=== PATIENT | male | born 1955 | race Caucasian/White ===

== ENCOUNTER 2016-06-08 05:48 | Emergency (ER) | payer MEDICARE, OTHER ==
[2016-06-08 06:10] VITALS: BP 135/106
[2016-06-08] MEDS ORDERED: Proparacaine 0.5% Ophth Soln 15 ML Bottle ONE (06:14)
[2016-06-08] MEDS ORDERED: Proparacaine 0.5% Ophth Soln 15 ML Bottle EYELF ONE (06:14)
--- NOTE | 2016-06-08 06:35 | EDM.PDOC ---
ED HPI EYE COMPLAINT - General Chief Complaint: ENT Problem Stated Complaint: SOMETHING IN LEFT EYE Time Seen by Provider: 06/08/16 06:16 Source: Reports: Patient, RN notes reviewed History Limitations: Reports: No limitations - History of Present Illness INITIAL COMMENTS - FREE TEXT/NARRATIVE: 61-year-old gentleman presents emergency department today with complaint of foreign body in his left eye he was doing some sanding may have gotten some particles in there he is experiencing severe severe pain - Related Data Allergies/ADRs: Allergies No Known Allergies Allergy (Verified 06/08/16 06:00) Home Meds: Ambulatory Orders Medication Instructions Recorded Confirmed Cyclobenzaprine HCl 10 mg PO DAILY 04/04/14 06/08/16 [Cyclobenzaprine HCl] Hydrocodone/Acetaminophen 1 - 2 tab PO BID 04/04/14 06/08/16 [Hydrocodon-Acetaminophen 5-325] Ibuprofen [Advil] 400 mg PO BID PRN 04/04/14 06/08/16 Omeprazole [Omeprazole] 40 mg PO DAILY 04/04/14 06/08/16 hydrOXYzine Pamoate [Hydroxyzine 25 mg PO TID 04/04/14 06/08/16 Pamoate] Acetaminophen [Tylenol] 2 tab PO Q4H PRN 12/02/15 06/08/16 Gabapentin [Neurontin] 200 mg PO BEDTIME 06/08/16 06/08/16 Ranitidine [Zantac] 150 mg PO BID PRN 06/08/16 06/08/16 Tamsulosin [Tamsulosin 24 Hr] 0.4 mg PO DAILY 06/08/16 06/08/16 Past Medical History HEENT History: Reports: Other (see below) Other HEENT History: impaired swallow Gastrointestinal History: Reports: GERD Genitourinary History: Reports: BPH, Chronic renal insuffiency Musculoskeletal History: Reports: Arthritis, Back pain, chronic, Other (see below) Other Musculoskeletal History: shoulder bursitis Neurological History: Reports: Concussion Psychiatric History: Reports: Depression - Past Surgical History HEENT Surgical History: Reports: Tonsillectomy Male Surgical History: Reports: Other (see below) Other Male Surgeries/Procedures: prostate "micro-wave and laser" Neurological Surgical History: Reports: C-Spine, Laminectomy, Lumbar spine, Sacral Spine, Spinal fusion Musculoskeletal Surgical History: Reports: Shoulder surgery Social & Family History - Family History Family Medical History: Noncontributory - Tobacco Use Smoking Status *Q: Current Every Day Smoker Years of Tobacco use: 45 Packs/Tins Daily: 0.5 Second Hand Smoke Exposure: No - Caffeine Use Caffeine Use: Reports: Coffee, Soda - Alcohol Use Days Per Week of Alcohol Use: 0 - Recreational Drug Use Recreational Drug Use: No ED ROS GENERAL - Review of Systems Review Of Systems: See Below Constitutional: Reports: no symptoms HEENT: Reports: Eye pain. Denies: Eye discharge ED EXAM GENERAL W FULL EYE - Physical Exam Exam: See Below Exam Limited By: No limitations General Appearance: alert, mild distress Eye Exam: right eye: normal inspection, left eye: corneal abrasion, foreign body , bilateral eye: PERRL Visual acuity (R) 20/: 40 Visual acuity (L) 20/: 25 With Correction: No Eyelids: bilateral: normal appearance Conjunctiva & Sclera: right: normal appearance, left: foreign body, injected Cornea Exam: left: corneal ulcer, foreign body Extraocular Movements: bilateral: intact Pupils: normal accommodation Pupillary Size: bilateral: 4 mm Pupillary Reaction: bilateral: brisk Anterior Chamber: bilateral: normal appearance Respiratory/Chest: no respiratory distress ED EYE w/ Add Procedure - Eye Procedure Alcaine Drops Administered: Yes Eye FB Removal: removal w/ needle Cyclogel 2 Drops Administered: left eye Antibiotic Oinment/Drps Admin: left eye Course - Vital Signs Last Recorded V/S: Last Vital Signs Temp 96.6 F 06/08/16 06:08 Pulse 77 06/08/16 06:08 Resp 19 06/08/16 06:08 BP 135/106 H 06/08/16 06:08 Pulse Ox 96 06/08/16 06:08 - Orders/Labs/Meds Meds: Medications Discontinued Medications Generic Name Dose Route Start Last Admin Trade Name Freq PRN Reason Stop Dose Admin Proparacaine HCl 1 ml 06/08/16 06:14 06/08/16 06:18 Proparacaine 0.5% Ophth Soln EYELF 06/08/16 06:15 5 drop ONETIME ONE Administration Proparacaine HCl Confirm 06/08/16 06:14 06/08/16 06:19 Proparacaine 0.5% Ophth Soln Administered 06/08/16 06:15 Not Given Dose 15 ml .ROUTE .STK-MED ONE Departure - Departure Time of Disposition: 06:36 Disposition: Home, Self-Care 01 Condition: good Clinical Impression: Foreign body of left eye Qualifiers: Encounter type: initial encounter Qualified Code(s): T15.92XA - Foreign body on external eye, part unspecified, left eye, initial encounter Forms: ED Department Discharge Additional Instructions: Take full course of antibiotics for the next 5 days, please followup with your eye care provider on Thursday for reevaluation - Assessment/Plan Plan: Assessment Acuity = acute Site and laterality = foreign body left eye Etiology = secondary to dust from sanding Manifestations = none Location of injury = home Lab values = none Plan 2 objects were removed from the left eye via needle he had significant relief following the procedure corneal exam reveals 2 small ulcers tetanus was 2 years ago placed on gentamicin ophthalmic follow up with eye care provider on Thursday for reevaluation Patient was in agreement with the plan all questions were answered, they were instructed to return to the emergency department or call for worsening symptoms. This note was dictated using [employer] voice recognition software please call with any questions.
== END 2016-06-08 06:46 | disposition home or self-care (01) ==
LOC: JP.ED 05:48
DX: T15.92XA Foreign body on external eye, part unspecified, left eye, initial encounter (principal); K21.9 Gastro-esophageal reflux disease without esophagitis; F32.9 Major depressive disorder, single episode, unspecified; F17.210 Nicotine dependence, cigarettes, uncomplicated; Z98.1 Arthrodesis status; Z98.890 Other specified postprocedural states; Z79.899 Other long term (current) drug therapy
CPT/HCPCS: 65220; 99283; A9270

== ENCOUNTER 2017-03-13 12:50 | Emergency (ER) | payer MEDICARE, OTHER ==
[2017-03-13 14:28] VITALS: BP 124/92
[2017-03-13] MEDS ORDERED: Ketorolac 60 MG/2 ML SDV IM ONE (14:58)
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
[2017-03-13] MEDS ORDERED: Acetaminophen/oxyCODONE 325-5 MG Tab PO ONE (14:59)
--- NOTE | 2017-03-17 09:03 | CR ---
Prior rotator cuff repair. Superior subluxation of the humeral head this can indicate rotator cuff ar thropathy. Probable resection of the distal clavicle. No dislocation.
== END 2017-03-13 18:55 | disposition home or self-care (01) ==
LOC: JP.ED 12:50
DX: S06.0X9A Concussion with loss of consciousness of unspecified duration, initial encounter (principal); S12.100A Unspecified displaced fracture of second cervical vertebra, initial encounter for closed fracture; S40.011A Contusion of right shoulder, initial encounter; F17.210 Nicotine dependence, cigarettes, uncomplicated; Z79.899 Other long term (current) drug therapy; W01.198A Fall on same level from slipping, tripping and stumbling with subsequent striking against other object, initial encounter
CPT/HCPCS: 70450; 72125; 73030; 81001; 96372; 99284; A9270; J1885

== ENCOUNTER 2017-09-30 00:45 | Emergency (ER) | payer MEDICARE, OTHER ==
[2017-09-30 01:10] VITALS: BP 126/92
--- NOTE | 2017-09-30 02:03 | EDM.PDOC ---
ED HPI GENERAL MEDICAL PROBLEM - General Chief Complaint: Lower Extremity Injury/Pain Stated Complaint: FEET PAIN Time Seen by Provider: 09/30/17 01:38 Source of Information: Reports: Patient, Old Records, RN Notes Reviewed History Limitations: Reports: No Limitations - History of Present Illness INITIAL COMMENTS - FREE TEXT/NARRATIVE: Drove himself here Chief complaint Bilateral foot pain History of present illness 62-year-old male with chronic neck back and leg pain Uncertain cause. The legs seem to bother him for at least 2 months. Has been diagnosed with peripheral neuropathy before. Has had many investigations for his pain discomfort. No recent injury no recent illness legs, feet, and back Pain Score (Numeric/FACES): 7 - Related Data Allergies Allergy/AdvReac Type Severity Reaction Status Date / Time No Known Allergies Allergy Verified 06/08/16 06:00 Home Meds: Home Meds Omeprazole 40 mg PO BID 04/04/14 [History] Acetaminophen [Acetaminophen Extra Strength] 100 mg PO BEDTIME 09/30/17 [History ] LORazepam 1 - 2 mg PO BID PRN #10 tablet 09/30/17 [Rx] Ranitidine [Zantac] 150 mg PO BID PRN 09/30/17 [History] Past Medical History HEENT History: Reports: Impaired Vision, Other (See Below) Other HEENT History: impaired swallow. tinnitus Gastrointestinal History: Reports: GERD, Hiatal Hernia Genitourinary History: Reports: BPH, Chronic Renal Insuffiency, Prostate Disorder Musculoskeletal History: Reports: Arthritis, Back Pain, Chronic, Other (See Below) Other Musculoskeletal History: shoulder bursitis Neurological History: Reports: Concussion Psychiatric History: Reports: Depression Oncologic (Cancer) History: Reports: Prostate Dermatologic History: Reports: Urticaria, Other (See Below) Other Dermatologic History: c4-t1. l4-s1 - Past Surgical History HEENT Surgical History: Reports: LASIK Male Surgical History: Reports: Prostatectomy Neurological Surgical History: Reports: C-Spine, Lumbar Spine, Sacral Spine, Spinal Fusion Musculoskeletal Surgical History: Reports: Shoulder Surgery Social & Family History - Family History Family Medical History: Noncontributory - Tobacco Use Smoking Status *Q: Current Every Day Smoker Years of Tobacco use: 45 Packs/Tins Daily: 0.7 - Caffeine Use Caffeine Use: Reports: Coffee, Tea - Recreational Drug Use Recreational Drug Use: No Review of Systems - Review of Systems Review Of Systems: See Below Constitutional: Reports: Other Eyes: Reports: No Symptoms (generalized malaise and weakness) Ears: Reports: No Symptoms Nose: Reports: No Symptoms Mouth/Throat: Reports: No Symptoms Respiratory: Reports: No Symptoms Cardiovascular: Reports: No Symptoms GI/Abdominal: Reports: No Symptoms Musculoskeletal: Reports: Foot Pain (bilateral) Skin: Reports: No Symptoms Neurological: Reports: Paresthesia, Syncope. Denies: Confusion, Dizziness, Headache ED EXAM, GENERAL - Physical Exam Exam: See Below Exam Limited By: No Limitations General Appearance: Alert, No Apparent Distress, Anxious, Other (normal vital signs) Eye Exam: Bilateral Eye: Normal Inspection Ears: Normal External Exam, Hearing Grossly Normal Nose: Normal Inspection, Normal Mucosa Throat/Mouth: Normal Inspection, Normal Oropharynx Head: Atraumatic, Normocephalic Neck: Normal Inspection, Supple, Non-Tender. No: Lymphadenopathy (R), Lymphadenopathy (L) Respiratory/Chest: No Respiratory Distress, Lungs Clear, No Accessory Muscle Use Cardiovascular: Normal Peripheral Pulses, Regular Rate, Rhythm GI/Abdominal: Normal Bowel Sounds, Non-Tender Back Exam: Normal Inspection Extremities: Normal Inspection, Normal Range of Motion, Normal Capillary Refill Neurological: Alert, Oriented, No Motor/Sensory Deficits Psychiatric: Anxious Skin Exam: Warm, Dry, Intact, Normal Color, No Rash Lymphatic: No Adenopathy Course - Vital Signs Last Recorded V/S: Last Vital Signs Temp 36.3 C 09/30/17 01:08 Pulse 84 09/30/17 01:08 Resp 15 09/30/17 01:08 BP 126/92 H 09/30/17 01:08 Pulse Ox 98 09/30/17 01:08 - Re-Assessments/Exams Free Text/Narrative Re-Assessment/Exam: 09/30/17 02:00 62-year-old male with ongoing bilateral foot pain for at least 2 months. Ongoing body pain first many years. Reports having seen many physicians. No acute infection inflammation or emergent condition is identified here tonight Consequently investigations not indicated He does have difficulty sleeping and is the primary reason he is here Prescribed lorazepam Follow-up primary care Departure - Departure Time of Disposition: 02:01 Disposition: Home, Self-Care 01 Condition: Undetermined Clinical Impression: Peripheral neuropathy Qualifiers: Peripheral neuropathy type: idiopathic neuropathy, unspecified Qualified Code(s ): G60.9 - Hereditary and idiopathic neuropathy, unspecified - Discharge Information Prescriptions: LORazepam 1 - 2 mg PO BID PRN #10 tablet PRN Reason: for pain or sleep Instructions: Peripheral Neuropathy Referrals: PCP,None [Primary Care Provider] - Forms: ED Department Discharge Additional Instructions: peripheral neuropathy involves inflammation of the nerves, In this case involving the feet. There are many causes of neuropathy and it is difficult to find out what causes it. Further evaluation by your physician and/or neurology is indicated. For now you're being prescribed some lorazepam to help with pain and discomfort and sleep Please make an appointment with your physician or clinic in the next 7-10 days for further assessment
== END 2017-09-30 02:10 | disposition home or self-care (01) ==
LOC: JP.ED 00:45
DX: G60.9 Hereditary and idiopathic neuropathy, unspecified (principal); K21.9 Gastro-esophageal reflux disease without esophagitis; F17.210 Nicotine dependence, cigarettes, uncomplicated; Z79.899 Other long term (current) drug therapy
CPT/HCPCS: 99283

== ENCOUNTER 2018-09-21 23:31 | Emergency (ER) | payer MEDICARE, OTHER ==
[2018-09-22 00:11] VITALS: BP 116/82
--- NOTE | 2018-09-22 00:46 | EDM.PDOC ---
ED HPI GENERAL MEDICAL PROBLEM - General Chief Complaint: Back Pain or Injury Stated Complaint: PAIN IN RIGHT AND LEFT LEGS Time Seen by Provider: 09/22/18 00:15 Source of Information: Reports: Patient, Family History Limitations: Reports: No Limitations - History of Present Illness INITIAL COMMENTS - FREE TEXT/NARRATIVE: 63-year-old male with chronic low back pain, several surgeries including fusions has a flareup over the past several days. He has some pain radiating down both buttocks into the posterior legs. He has responded well to prednisone in the past. No incontinence. Location: Reports: Back Associated Symptoms: Reports: No Other Symptoms Lower Back Pain Score (Numeric/FACES): 9 - Related Data Allergies Allergy/AdvReac Type Severity Reaction Status Date / Time No Known Allergies Allergy Verified 09/22/18 00:20 Home Meds: Home Meds Acetaminophen [Acetaminophen Extra Strength] 1,000 mg PO BEDTIME 09/30/17 [ History] Ranitidine [Zantac] 150 mg PO BID PRN 09/30/17 [History] Aspirin [Halfprin] 81 mg PO DAILY 09/22/18 [History] Rosuvastatin Calcium 5 mg PO BEDTIME 09/22/18 [History] Past Medical History HEENT History: Reports: Impaired Vision, Other (See Below) Other HEENT History: impaired swallow. tinnitus Respiratory History: Reports: Sleep Apnea Gastrointestinal History: Reports: GERD, Hiatal Hernia Genitourinary History: Reports: BPH, Chronic Renal Insuffiency, Prostate Disorder Musculoskeletal History: Reports: Arthritis, Back Pain, Chronic, Other (See Below) Other Musculoskeletal History: shoulder bursitis Neurological History: Reports: Concussion Psychiatric History: Reports: Depression Hematologic History: Reports: Anticoagulation Therapy Oncologic (Cancer) History: Reports: Prostate Dermatologic History: Reports: Urticaria, Other (See Below) Other Dermatologic History: c4-t1. l4-s1 - Infectious Disease History Infectious Disease History: Reports: Chicken Pox, Measles, Mumps - Past Surgical History HEENT Surgical History: Reports: LASIK Male Surgical History: Reports: Prostatectomy Neurological Surgical History: Reports: C-Spine, Lumbar Spine, Sacral Spine, Spinal Fusion, Thoracic Spine Musculoskeletal Surgical History: Reports: Shoulder Surgery Social & Family History - Family History Family Medical History: Noncontributory - Tobacco Use Smoking Status *Q: Current Every Day Smoker Years of Tobacco use: 45 Packs/Tins Daily: 0.5 - Caffeine Use Caffeine Use: Reports: Coffee - Recreational Drug Use Recreational Drug Use: No ED ROS GENERAL - Review of Systems Review Of Systems: See Below Constitutional: Denies: Fever, Chills Respiratory: Denies: Shortness of Breath GI/Abdominal: Denies: Abdominal Pain, Nausea, Vomiting Musculoskeletal: Reports: Back Pain Skin: Reports: No Symptoms. Denies: Rash Neurological: Denies: Paresthesia ED EXAM,LOWER BACK PAIN/INJURY - Physical Exam Exam: See Below Exam Limited By: No Limitations General Appearance: Alert, No Apparent Distress, Other (Fairly comfortable if lying still) Head: Atraumatic Respiratory/Chest: No Respiratory Distress, Lungs Clear Back Exam: Paraspinal Tenderness, Vertebral Tenderness (Tender to palpation over the lower back) Extremities: Other (No significant pain with internal or external rotation of either hip, straight leg raising pulls at his back but is negative for radiculopathy) Course - Vital Signs Last Recorded V/S: Last Vital Signs Temp 96 F 09/22/18 00:23 Pulse 66 09/22/18 00:23 Resp 14 09/22/18 00:23 BP 116/82 09/22/18 00:23 Pulse Ox 98 09/22/18 00:23 - Re-Assessments/Exams Free Text/Narrative Re-Assessment/Exam: 09/22/18 00:44 Patient will be placed on 50 mg of prednisone daily for 6 consecutive days. He was also given 10 hydrocodone to use for as needed pain control at night. Departure - Departure Time of Disposition: 01:35 Disposition: Home, Self-Care 01 Condition: Good Clinical Impression: Acute exacerbation of chronic low back pain - Discharge Information Instructions: Chronic Back Pain, [id number] Referrals: Nik Aguero DO [Primary Care Provider] - Forms: ED Department Discharge Care Plan Goals: Take 5 pills of prednisone with your first meal for 6 consecutive days, no taper as needed. Use hydrocodone for significant pain control if needed as prescribed. Recheck with your regular doctor next week if not improving satisfactorily.
== END 2018-09-22 01:20 | disposition home or self-care (01) ==
LOC: JP.ED 23:31
DX: M54.5 Low back pain (principal); G89.29 Other chronic pain; K21.9 Gastro-esophageal reflux disease without esophagitis; N18.9 Chronic kidney disease, unspecified; F17.210 Nicotine dependence, cigarettes, uncomplicated; Z79.82 Long term (current) use of aspirin; Z79.899 Other long term (current) drug therapy
CPT/HCPCS: 99283

== ENCOUNTER 2018-10-25 03:06 | Emergency (ER) | payer MEDICARE, OTHER ==
[2018-10-25 03:25] VITALS: BP 106/67; PULSE 79
--- NOTE | 2018-10-25 03:47 | EDM.PDOC ---
ED HPI GENERAL MEDICAL PROBLEM - General Chief Complaint: General Stated Complaint: NERVE PAIN Time Seen by Provider: 10/25/18 03:35 Source of Information: Reports: Patient, Family History Limitations: Reports: No Limitations - History of Present Illness INITIAL COMMENTS - FREE TEXT/NARRATIVE: 63-year-old male with chronic neuropathy and pain of unexplained pathology. This is a chronic problem, he has a chronic pain appointment coming up in a couple months. Tonight he was having shots of pain down his back and into his feet. He came in to get some relief. Onset: Unknown/Unsure Duration: Chronic Location: Reports: Generalized Quality: Reports: Sharp, Stabbing Improves with: Reports: None Associated Symptoms: Denies: Chest Pain, Cough, Diaphoresis, Nausea/Vomiting, Shortness of Breath Generalized Pain Score (Numeric/FACES): 9 - Related Data Allergies Allergy/AdvReac Type Severity Reaction Status Date / Time No Known Allergies Allergy Verified 10/25/18 03:15 Home Meds: Home Meds Acetaminophen [Acetaminophen Extra Strength] 1,000 mg PO BEDTIME 09/30/17 [ History] Ranitidine [Zantac] 150 mg PO BID PRN 09/30/17 [History] Aspirin [Halfprin] 81 mg PO DAILY 09/22/18 [History] Rosuvastatin Calcium 5 mg PO BEDTIME 09/22/18 [History] Past Medical History HEENT History: Reports: Impaired Vision, Other (See Below) Other HEENT History: impaired swallow. tinnitus Respiratory History: Reports: Sleep Apnea Gastrointestinal History: Reports: GERD, Hiatal Hernia Genitourinary History: Reports: BPH, Chronic Renal Insuffiency, Prostate Disorder Musculoskeletal History: Reports: Arthritis, Back Pain, Chronic, Other (See Below) Other Musculoskeletal History: shoulder bursitis Neurological History: Reports: Concussion Psychiatric History: Reports: Depression Hematologic History: Reports: Anticoagulation Therapy Oncologic (Cancer) History: Reports: Prostate Dermatologic History: Reports: Urticaria, Other (See Below) Other Dermatologic History: c4-t1. l4-s1 - Infectious Disease History Infectious Disease History: Reports: Measles - Past Surgical History HEENT Surgical History: Reports: LASIK Male Surgical History: Reports: Prostatectomy Neurological Surgical History: Reports: C-Spine, Lumbar Spine, Sacral Spine, Spinal Fusion, Thoracic Spine Musculoskeletal Surgical History: Reports: Shoulder Surgery Social & Family History - Family History Family Medical History: Noncontributory - Tobacco Use Smoking Status *Q: Current Every Day Smoker Years of Tobacco use: 50 Packs/Tins Daily: 0.7 - Caffeine Use Caffeine Use: Reports: Coffee - Recreational Drug Use Recreational Drug Use: No ED ROS GENERAL - Review of Systems Review Of Systems: See Below Constitutional: Denies: Fever, Chills HEENT: Reports: No Symptoms Respiratory: Denies: Shortness of Breath Cardiovascular: Denies: Chest Pain GI/Abdominal: Denies: Abdominal Pain Skin: Denies: Rash Neurological: Denies: Headache ED EXAM, GENERAL - Physical Exam Exam: See Below Exam Limited By: No Limitations General Appearance: Alert, Anxious, Other (Occasional increased pain causing him to be very uncomfortable) Eye Exam: Bilateral Eye: EOMI Respiratory/Chest: No Respiratory Distress, Lungs Clear Cardiovascular: Regular Rate, Rhythm Back Exam: Paraspinal Tenderness (Especially through the thoracic spine) Neurological: Alert, Oriented Psychiatric: Anxious Skin Exam: Warm, Dry Course - Vital Signs Last Recorded V/S: Last Vital Signs Temp 96.5 F 10/25/18 03:18 Pulse 79 10/25/18 03:18 Resp 18 10/25/18 03:18 BP 106/67 10/25/18 03:18 Pulse Ox 95 10/25/18 03:18 - Re-Assessments/Exams Free Text/Narrative Re-Assessment/Exam: 10/25/18 05:29 Patient will be discharged with a Medrol Dosepak and 10 hydrocodone for extra pain control. I saw him several months ago for the same thing and he seemed to respond well to this treatment. He should keep his chronic pain appointment as scheduled. Departure - Departure Time of Disposition: 03:48 Disposition: Home, Self-Care 01 Clinical Impression: Polyneuropathy - Discharge Information Instructions: Peripheral Neuropathy Referrals: Nik Aguero DO [Primary Care Provider] - Forms: ED Department Discharge Care Plan Goals: Take Medrol Dosepak as prescribed, and use hydrocodone sparingly for extra pain control for the next several days. Discuss refills with your primary provider if the meds are helpful.
== END 2018-10-25 03:51 | disposition home or self-care (01) ==
LOC: JP.ED 03:06
DX: G62.9 Polyneuropathy, unspecified (principal); K21.9 Gastro-esophageal reflux disease without esophagitis; N18.9 Chronic kidney disease, unspecified; F17.210 Nicotine dependence, cigarettes, uncomplicated; Z79.01 Long term (current) use of anticoagulants; Z79.899 Other long term (current) drug therapy; Z79.82 Long term (current) use of aspirin
CPT/HCPCS: 99283

== ENCOUNTER 2019-01-11 08:26 | Emergency (ER) | payer MEDICARE, OTHER ==
[2019-01-11 08:48] VITALS: BP 111/75; PULSE 65
--- NOTE | 2019-01-11 08:59 | EDM.PDOC ---
ED HPI GENERAL MEDICAL PROBLEM - General Chief Complaint: Respiratory Problem Stated Complaint: SOB,DIZZINESS,LIGHTHEADED,CHEST PAIN Time Seen by Provider: 01/11/19 08:51 Source of Information: Reports: Patient History Limitations: Reports: No Limitations - History of Present Illness INITIAL COMMENTS - FREE TEXT/NARRATIVE: 63-year-old male with a history of polyneuropathy, and coronary disease presents with 6 hours of vertigo, mild chest discomfort and generalized malaise. When I went into the exam room he was resting comfortably with normal vitals. He feels short of breath with activity but has no cough, fever, cold symptoms, nausea vomiting, diarrhea, rashes or joint pains. He did not receive an influenza vaccine. Onset: Unknown/Unsure (Woke with symptoms at 3:30 AM) Associated Symptoms: Reports: Chest Pain, Malaise, Shortness of Breath, Weakness. Denies: Confusion, Cough, Diaphoresis, Fever/Chills, Nausea/Vomiting - Related Data Allergies Allergy/AdvReac Type Severity Reaction Status Date / Time No Known Allergies Allergy Verified 01/11/19 09:21 Home Meds: Home Meds Hydrocodone/Acetaminophen [Hydrocodon-Acetaminophen 5-325] 1 each PO 01/11/19 [ History] Ranitidine HCl [Ranitidine] 150 mg PO DAILY 01/11/19 [History] Past Medical History HEENT History: Reports: Impaired Vision, Other (See Below) Other HEENT History: impaired swallow. tinnitus Cardiovascular History: Reports: CAD, Other (See Below) Other Cardiovascular History: "aorta problem" Respiratory History: Reports: Sleep Apnea Gastrointestinal History: Reports: GERD, Hiatal Hernia Genitourinary History: Reports: BPH, Chronic Renal Insuffiency, Prostate Disorder Musculoskeletal History: Reports: Arthritis, Back Pain, Chronic, Other (See Below) Other Musculoskeletal History: shoulder bursitis Neurological History: Reports: Concussion Psychiatric History: Reports: Depression Hematologic History: Reports: Anticoagulation Therapy Oncologic (Cancer) History: Reports: Prostate Dermatologic History: Reports: Urticaria, Other (See Below) Other Dermatologic History: c4-t1. l4-s1 - Infectious Disease History Infectious Disease History: Reports: Measles - Past Surgical History HEENT Surgical History: Reports: LASIK Male Surgical History: Reports: Prostatectomy Neurological Surgical History: Reports: C-Spine, Lumbar Spine, Sacral Spine, Spinal Fusion, Thoracic Spine Musculoskeletal Surgical History: Reports: Shoulder Surgery Social & Family History - Family History Family Medical History: Noncontributory - Caffeine Use Caffeine Use: Reports: Coffee ED ROS GENERAL - Review of Systems Review Of Systems: See Below Constitutional: Reports: Malaise. Denies: Fever, Chills HEENT: Denies: Throat Pain, Vision Change Respiratory: Reports: Shortness of Breath. Denies: Wheezing, Cough Cardiovascular: Reports: Chest Pain (Mild substernal pressure, nonradiating and not related to activity) GI/Abdominal: Reports: No Symptoms : Reports: No Symptoms Skin: Reports: Other (Some erythema of the right finger secondary to recently treated cellulitis) Neurological: Reports: Dizziness, Tingling (Chronic intermittent tingling of his hands and feet), Weakness. Denies: Syncope Psychiatric: Reports: No Symptoms ED EXAM, GENERAL - Physical Exam Exam: See Below Exam Limited By: No Limitations General Appearance: Alert, No Apparent Distress Eye Exam: Bilateral Eye: Normal Inspection Ears: Normal TMs Head: Atraumatic Neck: Supple Respiratory/Chest: No Respiratory Distress, Lungs Clear Cardiovascular: Regular Rate, Rhythm. No: Tachycardia, Extra Beats GI/Abdominal: Soft, Non-Tender Extremities: Normal Inspection. No: Pedal Edema Neurological: Alert, Oriented Psychiatric: Normal Affect, Normal Mood Course - Vital Signs Last Recorded V/S: Last Vital Signs Temp 96.3 F 01/11/19 08:39 Pulse 65 01/11/19 08:39 Resp 24 H 01/11/19 08:39 BP 111/75 01/11/19 08:39 Pulse Ox 97 01/11/19 08:39 - Orders/Labs/Meds Labs: Laboratory Tests 01/11/19 01/11/19 Range/Units 09:09 09:09 WBC 6.9 (4.5-11.0) K/uL RBC 4.70 (4.30-5.90) M/uL Hgb 15.2 H (12.0-15.0) g/dL Hct 44.2 (40.0-54.0) % MCV 94 (80-98) fL MCH 32 H (27-31) pg MCHC 34 (32-36) % Plt Count 241 (150-400) K/uL Neut % (Auto) 57 (36-66) % Lymph % (Auto) 33 (24-44) % Carroll % (Auto) 7 H (2-6) % Eos % (Auto) 2 (2-4) % Baso % (Auto) 1 (0-1) % Sodium 139 L (140-148) mmol/L Potassium 3.9 (3.6-5.2) mmol/L Chloride 103 (100-108) mmol/L Carbon Dioxide 25 (21-32) mmol/L Anion Gap 14.9 H (5.0-14.0) mmol/L BUN 22 H (7-18) mg/dL Creatinine 1.3 (0.8-1.3) mg/dL Est Cr Clr Drug Dosing 57.22 mL/min Estimated GFR (MDRD) 56 L (>60) Glucose 95 (74-106) mg/dL Calcium 8.6 (8.5-10.1) mg/dL Total Bilirubin 0.2 (0.2-1.0) mg/dL AST 19 (15-37) U/L ALT 23 (12-78) U/L Alkaline Phosphatase 83 (46-116) U/L Troponin I < 0.017 (0.000-0.056) ng/mL C-Reactive Protein 0.10 (0.0-0.3) mg/dL Total Protein 6.8 (6.4-8.2) g/dL Albumin 3.3 L (3.4-5.0) g/dL Globulin 3.5 (2.3-3.5) g/dL Albumin/Globulin Ratio 0.9 L (1.2-2.2) - Re-Assessments/Exams Free Text/Narrative Re-Assessment/Exam: 01/11/19 09:04 Two-view chest x-ray will be obtained along with CBC CMP and troponin and a CRP. I suspect labs will be reassuring and we may be able to give him some meclizine to help with symptoms until he can see his primary physicians at [place] for his consult in 2 weeks. 01/11/19 09:29 CBC is normal and chest x-ray looks excellent. CMP, troponin CRP are pending 01/11/19 09:48 Rest of his labs are reassuring. Copies were made and sent with the patient. He was given meclizine to use up to 3 times daily for vertigo and dizziness but no other treatment is needed at this time. Departure - Departure Time of Disposition: 10:13 Disposition: Home, Self-Care 01 Condition: Good Clinical Impression: Dizziness - Discharge Information Instructions: Dizziness Referrals: Nik Aguero DO [Primary Care Provider] - Forms: ED Department Discharge Care Plan Goals: Try meclizine up to 3 times daily for vertigo and dizziness, and continue activity as tolerated. Recheck with your specialty physicians as scheduled, and return anytime if worsening such as fever or increased shortness of breath.
--- NOTE | 2019-01-11 09:53 | CRLCR ---
INDICATION: Dyspnea. COMPARISON: None. TECHNIQUE: Two view chest. FINDINGS: No focal consolidation, pleural effusion, or pneumothorax. Calcified granulomas left lung. Normal heart size and pulmonary vascularity. Degenerative changes of the spine. Postoperative changes in the right humeral head and cervical spine. IMPRESSION: No acute cardiopulmonary findings. Dictated by Pauly Mcmillan MD @ Jan 11 2019 9:48AM Signed by Dr. Pauly Mcmillan @ Jan 11 2019 9:51AM
== END 2019-01-11 10:13 | disposition home or self-care (01) ==
LOC: JP.ED 08:26
DX: R42 Dizziness and giddiness (principal); K21.9 Gastro-esophageal reflux disease without esophagitis; Z79.899 Other long term (current) drug therapy; N18.9 Chronic kidney disease, unspecified
CPT/HCPCS: 36415; 71046; 80053; 84484; 85025; 86140; 99283; 99284-25

== ENCOUNTER 2019-07-04 18:29 | Emergency (ER) | payer MEDICARE, OTHER ==
[2019-07-04] MEDS ORDERED: Tetracaine HCl/PF 0.5% 4 ML Bottle EYELF ONE (18:59)
--- NOTE | 2019-07-04 19:17 | EDM.PDOC ---
ED HPI GENERAL MEDICAL PROBLEM - General Chief Complaint: Eye Problems Stated Complaint: LEFT EYE PAIN/REDNESS Time Seen by Provider: 07/04/19 19:05 Source of Information: Reports: Patient, Old Records, RN History Limitations: Reports: No Limitations - History of Present Illness INITIAL COMMENTS - FREE TEXT/NARRATIVE: 64 yo male here with L eye redness, irritation, and mild photophobia that began earlier today. He had done some grinding recently, not today. Tetanus is UTD. Vision is not impaired. No discharge. Onset: Today Onset Date: 07/04/19 Duration: Hour(s):, Getting Worse Location: Reports: Face (L eye) Quality: Reports: Burning Severity: Mild Improves with: Reports: None Worsens with: Reports: Other (bright lights) Context: Reports: Other (see HPI) Associated Symptoms: Reports: No Other Symptoms Treatments QUAD STAYER: Reports: Other (see below) (none) Left Eye Pain Score (Numeric/FACES): 9 - Related Data Allergies Allergy/AdvReac Type Severity Reaction Status Date / Time No Known Allergies Allergy Verified 01/11/19 09:21 Home Meds: Home Meds Hydrocodone/Acetaminophen [Hydrocodon-Acetaminophen 5-325] 1 each PO DAILY 01/11 [History] Ranitidine HCl [Ranitidine] 150 mg PO ASDIRECTED PRN 01/11/19 [History] Past Medical History HEENT History: Reports: Impaired Vision, Other (See Below) Other HEENT History: impaired swallow. tinnitus Cardiovascular History: Reports: CAD, Other (See Below) Other Cardiovascular History: "aorta problem" Respiratory History: Reports: Sleep Apnea Gastrointestinal History: Reports: GERD, Hiatal Hernia Genitourinary History: Reports: BPH, Chronic Renal Insuffiency, Prostate Disorder Musculoskeletal History: Reports: Arthritis, Back Pain, Chronic, Other (See Below) Other Musculoskeletal History: shoulder bursitis Neurological History: Reports: Concussion Psychiatric History: Reports: Depression Hematologic History: Reports: Anticoagulation Therapy Oncologic (Cancer) History: Reports: Prostate Dermatologic History: Reports: Urticaria, Other (See Below) Other Dermatologic History: c4-t1. l4-s1 - Infectious Disease History Infectious Disease History: Reports: Chicken Pox - Past Surgical History HEENT Surgical History: Reports: LASIK Male Surgical History: Reports: Prostatectomy Neurological Surgical History: Reports: C-Spine, Lumbar Spine, Sacral Spine, Spinal Fusion, Thoracic Spine Musculoskeletal Surgical History: Reports: Shoulder Surgery Social & Family History - Family History Family Medical History: Noncontributory - Tobacco Use Smoking Status *Q: Current Every Day Smoker Years of Tobacco use: 50 Packs/Tins Daily: 0.5 - Caffeine Use Caffeine Use: Reports: Coffee ED ROS GENERAL - Review of Systems Review Of Systems: See Below Constitutional: Reports: No Symptoms HEENT: Reports: Eye Pain (left). Denies: Eye Discharge, Vision Change ED EXAM GENERAL W FULL EYE - Physical Exam Exam: See Below Exam Limited By: No Limitations General Appearance: Alert, WD/WN, No Apparent Distress Eye Exam: Left Eye: Conjunctival Injection, Foreign Body (small black FB directly over the pupil), Bilateral Eye: EOMI, PERRL Visual Acuity (L) 20/: 20 Eyelids: Left: Lid Everted for Exam, Bilateral: Normal Appearance Conjunctiva & Sclera: Left: Injected Cornea Exam: Left: Foreign Body Extraocular Movements: Bilateral: Intact Pupillary Size: Bilateral: 3 mm Ears: Hearing Grossly Normal Nose: Normal Inspection, No Blood Throat/Mouth: Normal Voice Head: Atraumatic, Normocephalic Neck: Normal Inspection ED EYE w/ Add Procedure - Eye Procedure Alcaine Drops Administered: No (tetracaine drops OS) Eye FB Removal: Other (Meeker brush used to remove the FB, no rust ring noted after removal. ) Course - Vital Signs Last Recorded V/S: Last Vital Signs Temp 35.3 C L 07/04/19 18:50 Pulse 89 07/04/19 18:50 Resp 16 07/04/19 18:50 BP 137/92 H 07/04/19 18:50 Pulse Ox 97 07/04/19 18:50 - Orders/Labs/Meds Meds: Medications Discontinued Medications Generic Name Dose Route Start Last Admin Trade Name Freq PRN Reason Stop Dose Admin Tetracaine HCl 1 ml 07/04/19 18:59 07/04/19 19:04 Tetracaine 0.5% Steri-Unit Rosita EYELF 07/04/19 19:00 2 drop ASDIRECTED ONE Administration Departure - Departure Time of Disposition: 19:20 Disposition: Home, Self-Care 01 Condition: Good Clinical Impression: Foreign body of left cornea Qualifiers: Encounter type: initial encounter Qualified Code(s): T15.02XA - Foreign body in cornea, left eye, initial encounter - Discharge Information *PRESCRIPTION DRUG MONITORING PROGRAM REVIEWED*: No *COPY OF PRESCRIPTION DRUG MONITORING REPORT IN PATIENT CHANDNI: No Instructions: Eye Foreign Body, [id number] Referrals: Nik Aguero DO [Primary Care Provider] - Additional Instructions: No eye rubbing. Take ibuprofen and/or acetaminophen as needed for pain relief. Rest in a dark room tonight. You eye should be back to normal by tomorrow morning. Recheck for continued issues with redness, pain, drainage or decreased vision. Sepsis Event Note - Evaluation Sepsis Screening Result: No Definite Risk - Focused Exam Vital Signs: Vital Signs Temp Pulse Resp BP Pulse Ox 07/04/19 18:50 35.3 C L 89 16 137/92 H 97 Date Exam was Performed: 07/04/19 Time Exam was Performed: 19:12
[2019-07-04 19:30] VITALS: BP 137/92; PULSE 89
== END 2019-07-04 19:26 | disposition home or self-care (01) ==
LOC: JP.ED 18:29
DX: T15.02XA Foreign body in cornea, left eye, initial encounter (principal); I25.10 Atherosclerotic heart disease of native coronary artery without angina pectoris; F17.210 Nicotine dependence, cigarettes, uncomplicated
CPT/HCPCS: 65220; 99282

== ENCOUNTER 2019-07-22 08:13 | Emergency (ER) | payer MEDICARE, OTHER ==
[2019-07-22 08:20] VITALS: BP 104/68; PULSE 83
[2019-07-22] MEDS ORDERED: Sodium Chloride 0.9% 10 ML Syringe FLUSH PRN (08:23)
--- NOTE | 2019-07-22 08:27 | EDM.PDOC ---
ED HPI GENERAL MEDICAL PROBLEM - General Chief Complaint: Chest Pain Stated Complaint: [facility] Time Seen by Provider: 07/22/19 08:23 Source of Information: Reports: Patient, EMS, RN Notes Reviewed History Limitations: Reports: No Limitations - History of Present Illness INITIAL COMMENTS - FREE TEXT/NARRATIVE: 64-year-old gentleman presents emergency department a complaint of chest pain, he arrived by EMS was given aspirin and nitro via EMS pain was initially 2 out of 10 following initial treatment his pain is now 0. He states approximately 7 AM or an hour and half prior to presentation he was out for a walk he did return home sat down sudden onset of substernal chest pain with shortness of breath no nausea no diaphoresis. He states he has no cardiac history he does have some blockages in his aorta and he does use tobacco products does have a family history of congestive heart failure chest Pain Score (Numeric/FACES): 1 - Related Data Allergies Allergy/AdvReac Type Severity Reaction Status Date / Time No Known Allergies Allergy Verified 07/22/19 08:19 Home Meds: Home Meds Hydrocodone/Acetaminophen [Hydrocodon-Acetaminophen 5-325] 1 each PO BID [History] Cyclobenzaprine [Flexeril] 10 mg PO TID 07/22/19 [History] Pantoprazole [ProTONIX] 40 mg PO DAILY 07/22/19 [History] Past Medical History HEENT History: Reports: Impaired Vision, Other (See Below) Other HEENT History: impaired swallow. tinnitus Cardiovascular History: Reports: Other (See Below) Other Cardiovascular History: "aorta problem" Respiratory History: Reports: Sleep Apnea Gastrointestinal History: Reports: GERD, Hiatal Hernia Genitourinary History: Reports: BPH, Chronic Renal Insuffiency, Prostate Disorder Musculoskeletal History: Reports: Arthritis, Back Pain, Chronic, Other (See Below) Other Musculoskeletal History: shoulder bursitis Neurological History: Reports: Concussion Psychiatric History: Reports: Depression Hematologic History: Reports: Anticoagulation Therapy Oncologic (Cancer) History: Reports: Prostate Dermatologic History: Reports: Urticaria, Other (See Below) Other Dermatologic History: c4-t1. l4-s1 - Infectious Disease History Infectious Disease History: Reports: Chicken Pox - Past Surgical History HEENT Surgical History: Reports: LASIK Male Surgical History: Reports: Prostatectomy Neurological Surgical History: Reports: C-Spine, Lumbar Spine, Sacral Spine, Spinal Fusion, Thoracic Spine Musculoskeletal Surgical History: Reports: Shoulder Surgery Social & Family History - Family History Cardiac: Reports: Heart Failure - Caffeine Use Caffeine Use: Reports: Coffee ED ROS GENERAL - Review of Systems Review Of Systems: See Below Constitutional: Reports: No Symptoms. Denies: Diaphoresis HEENT: Reports: No Symptoms Respiratory: Reports: Shortness of Breath Cardiovascular: Reports: Chest Pain GI/Abdominal: Reports: No Symptoms : Reports: No Symptoms ED EXAM, GENERAL - Physical Exam Exam: See Below Exam Limited By: No Limitations General Appearance: Alert, WD/WN, No Apparent Distress Head: Atraumatic, Normocephalic Neck: Normal Inspection, Supple, Non-Tender, Full Range of Motion Respiratory/Chest: No Respiratory Distress, Lungs Clear, Normal Breath Sounds, No Accessory Muscle Use, Chest Non-Tender Cardiovascular: Regular Rate, Rhythm, No Murmur GI/Abdominal: Soft, Non-Tender Back Exam: Normal Inspection, Full Range of Motion. No: CVA Tenderness (R), CVA Tenderness (L) Extremities: Normal Inspection, Normal Range of Motion, Non-Tender, No Pedal Edema Course - Vital Signs Last Recorded V/S: Last Vital Signs Temp 97.6 F 07/22/19 08:14 Pulse 83 07/22/19 08:14 Resp 13 07/22/19 08:14 BP 104/68 07/22/19 08:14 Pulse Ox 97 07/22/19 08:14 - Orders/Labs/Meds Orders: Active Orders 24 hr Category Date Time Status Cardiac Monitoring [RC] .As Directed Care 07/22/19 08:23 Active Peripheral IV Care [RC] . DIRECTED Care 07/22/19 08:24 Active Sodium Chloride 0.9% [Saline Flush] Med 07/22/19 08:23 Active 10 ml FLUSH ASDIRECTED PRN Peripheral IV Insertion Adult [OM.PC] Stat Oth 07/22/19 08:23 Ordered Saline Lock Insert [OM.PC] Stat Oth 07/22/19 08:23 Ordered Medication Orders Sodium Chloride (Saline Flush) 10 ml FLUSH ASDIRECTED PRN PRN Reason: Keep Vein Open Labs: Laboratory Tests 07/22/19 07/22/19 07/22/19 Range/Units 08:23 08:23 08:24 WBC 7.6 (4.5-11.0) K/uL RBC 4.94 (4.30-5.90) M/uL Hgb 15.7 H (12.0-15.0) g/dL Hct 45.8 (40.0-54.0) % MCV 93 (80-98) fL MCH 32 H (27-31) pg MCHC 34 (32-36) % Plt Count 259 (150-400) K/uL Neut % (Auto) 56 (36-66) % Lymph % (Auto) 32 (24-44) % [place] % (Auto) 9 H (2-6) % Eos % (Auto) 2 (2-4) % Baso % (Auto) 1 (0-1) % PT (9.5-12.0) sec INR (0.80-1.20) APTT 28.6 (27.0-36.0) sec Sodium 137 L (140-148) mmol/L Potassium 4.1 (3.6-5.2) mmol/L Chloride 101 (100-108) mmol/L Carbon Dioxide 27 (21-32) mmol/L Anion Gap 13.1 (5.0-14.0) mmol/L BUN 19 H (7-18) mg/dL Creatinine 1.5 H (0.8-1.3) mg/dL Est Cr Clr Drug Dosing 48.13 mL/min Estimated GFR (MDRD) 47 L (>60) Glucose 91 (74-106) mg/dL Calcium 9.0 (8.5-10.1) mg/dL Total Bilirubin 0.3 (0.2-1.0) mg/dL AST 23 (15-37) U/L ALT 35 (12-78) U/L Alkaline Phosphatase 93 (46-116) U/L Troponin I < 0.017 (0.000-0.056) ng/mL Total Protein 7.3 (6.4-8.2) g/dL Albumin 3.4 (3.4-5.0) g/dL Globulin 3.9 H (2.3-3.5) g/dL Albumin/Globulin Ratio 0.9 L (1.2-2.2) 07/22/19 07/22/19 Range/Units 08:24 11:00 WBC (4.5-11.0) K/uL RBC (4.30-5.90) M/uL Hgb (12.0-15.0) g/dL Hct (40.0-54.0) % MCV (80-98) fL MCH (27-31) pg MCHC (32-36) % Plt Count (150-400) K/uL Neut % (Auto) (36-66) % Lymph % (Auto) (24-44) % [place] % (Auto) (2-6) % Eos % (Auto) (2-4) % Baso % (Auto) (0-1) % PT 10.0 (9.5-12.0) sec INR 0.92 (0.80-1.20) APTT (27.0-36.0) sec Sodium (140-148) mmol/L Potassium (3.6-5.2) mmol/L Chloride (100-108) mmol/L Carbon Dioxide (21-32) mmol/L Anion Gap (5.0-14.0) mmol/L BUN (7-18) mg/dL Creatinine (0.8-1.3) mg/dL Est Cr Clr Drug Dosing mL/min Estimated GFR (MDRD) (>60) Glucose (74-106) mg/dL Calcium (8.5-10.1) mg/dL Total Bilirubin (0.2-1.0) mg/dL AST (15-37) U/L ALT (12-78) U/L Alkaline Phosphatase (46-116) U/L Troponin I < 0.017 (0.000-0.056) ng/mL Total Protein (6.4-8.2) g/dL Albumin (3.4-5.0) g/dL Globulin (2.3-3.5) g/dL Albumin/Globulin Ratio (1.2-2.2) Meds: Medications Generic Name Dose Route Start Last Admin Trade Name Freq PRN Reason Stop Dose Admin Sodium Chloride 10 ml 07/22/19 08:23 Saline Flush FLUSH ASDIRECTED PRN Keep Vein Open Departure - Departure Time of Disposition: 11:30 Disposition: Home, Self-Care 01 Condition: Fair Clinical Impression: Atypical chest pain Referrals: PCP,None [Primary Care Provider] - Forms: ED Department Discharge Additional Instructions: Continue with your regular medications, please call your primary care provider and set up a stress test through [facility], call return to the emergency department worsening of symptoms Sepsis Event Note - Evaluation Sepsis Screening Result: No Definite Risk - Focused Exam Vital Signs: Vital Signs Temp Pulse Resp BP Pulse Ox 07/22/19 08:14 97.6 F 83 13 104/68 97 Date Exam was Performed: 07/22/19 Time Exam was Performed: 11:29 - My Orders Last 24 Hours: My Active Orders 07/22/19 08:23 Cardiac Monitoring [RC] .As Directed Sodium Chloride 0.9% [Saline Flush] 10 ml FLUSH ASDIRECTED PRN Peripheral IV Insertion Adult [OM.PC] Stat Saline Lock Insert [OM.PC] Stat 07/22/19 08:24 Peripheral IV Care [RC] . DIRECTED - Assessment/Plan Last 24 Hours: My Active Orders 07/22/19 08:23 Cardiac Monitoring [RC] .As Directed Sodium Chloride 0.9% [Saline Flush] 10 ml FLUSH ASDIRECTED PRN Peripheral IV Insertion Adult [OM.PC] Stat Saline Lock Insert [OM.PC] Stat 07/22/19 08:24 Peripheral IV Care [RC] . DIRECTED Plan: Assessment Acuity = acute Site and laterality = atypical chest pain Etiology = unknown Manifestations = none Location of injury = Home Lab values = creatinine elevated 1.5 consistent chronic renal failure stage G3a , EKG demonstrates sinus rhythm without any ST elevations or depressions chest x -ray shows no acute process troponin was negative x2 Plan I did review lab work EKG and chest x-ray results with him he is going to proceed with a stress test but he would like to call his primary care doctor and set it up through [facility], will have him call or return to the emergency department worsening of symptoms This note was dictated using [employer] voice recognition software please call with any questions on syntax or grammar.
--- NOTE | 2019-07-22 10:26 | CR ---
CHEST: Portable 07/22/2019 at 08 36 AM CLINICAL HISTORY:Chest pain COMPARISON:2019 FINDINGS: The heart size, pulmonary vascularity and hilar structures are normal. No infiltrate effusion or pneumothorax is seen. Lungs appear mildly hyperaerated. There are scattered granulomata. IMPRESSION: No acute cardiopulmonary process. Mild hyperaeration Previous granulomatous exposure
== END 2019-07-22 11:47 | disposition home or self-care (01) ==
LOC: JP.ED 08:13
DX: R07.89 Other chest pain (principal); K21.9 Gastro-esophageal reflux disease without esophagitis; F17.200 Nicotine dependence, unspecified, uncomplicated; Z79.899 Other long term (current) drug therapy
CPT/HCPCS: 36415; 71045; 71045-26; 80053; 84484; 85025; 85610; 85730; 99284; 99285-25

== ENCOUNTER 2020-03-02 21:52 | Emergency (ER) | payer MEDICARE, OTHER ==
[2020-03-02] MEDS ORDERED: Morphine 4 MG/ML Syringe IVPUSH ONE (22:12)
[2020-03-02] MEDS ORDERED: Sodium Chloride 0.9% 1,000 ML IV SCH (22:15)
[2020-03-02] MEDS ORDERED: Ondansetron 4 MG/2 ML SDV IVPUSH ONE (22:23)
[2020-03-02] MEDS ORDERED: Ondansetron 4 MG/2 ML SDV ONE (22:25)
--- NOTE | 2020-03-02 22:25 | EDM.PDOC ---
ED HPI GENERAL MEDICAL PROBLEM - General Chief Complaint: Chest Pain Stated Complaint: CHEST PAINS Time Seen by Provider: 03/02/20 22:00 Source of Information: Reports: Patient, Family History Limitations: Reports: No Limitations - History of Present Illness INITIAL COMMENTS - FREE TEXT/NARRATIVE: 65-year-old male with no known coronary artery disease but does have calcifications of the aorta presented with acute chest pain for the past hour and a half. It was sharp in nature, somewhat worse with breathing, and radiated to the right posterior shoulder. No shortness of breath, nausea or vomiting or diaphoresis. He took a nitroglycerin and it seemed to help some. He still having a small amount of pain. He looks entirely comfortable. He does admit that if he takes a deep breath, it seems to be somewhat worse. He has not been physically active, suffered from a cough, shortness of breath or recent illness. He had a stress test earlier this year that was normal. Onset: Sudden Duration: Hour(s): (1-1/2 hours ago) Location: Reports: Chest (Substernal and right chest) Quality: Reports: Sharp, Stabbing Associated Symptoms: Reports: Chest Pain, Other (Some right shoulder pain) chest pain Pain Score (Numeric/FACES): 8 - Related Data Allergies Allergy/AdvReac Type Severity Reaction Status Date / Time No Known Allergies Allergy Verified 03/03/20 01:04 Home Meds: Home Meds Hydrocodone/Acetaminophen [Hydrocodon-Acetaminophen 5-325] 1 each PO BID 01/11/19 [History] Pantoprazole [ProTONIX] 40 mg PO DAILY 07/22/19 [History] Baclofen 10 mg PO ASDIRECTED PRN 03/03/20 [History] Nitroglycerin [Nitrostat] 0.4 mg SL ASDIRECTED PRN 03/03/20 [History] Past Medical History HEENT History: Reports: Impaired Vision, Other (See Below) Other HEENT History: impaired swallow, tinnitus Cardiovascular History: Reports: Other (See Below) Other Cardiovascular History: "aorta problem". "aortic blockages" Respiratory History: Reports: Sleep Apnea Gastrointestinal History: Reports: GERD, Hiatal Hernia Genitourinary History: Reports: BPH, Chronic Renal Insuffiency, Prostate Disorder Musculoskeletal History: Reports: Arthritis, Back Pain, Chronic, Other (See Below) Other Musculoskeletal History: shoulder bursitis Neurological History: Reports: Concussion Psychiatric History: Reports: Depression Hematologic History: Reports: Anticoagulation Therapy Oncologic (Cancer) History: Reports: Prostate Dermatologic History: Reports: Urticaria, Other (See Below) Other Dermatologic History: c4-t1. l4-s1 - Infectious Disease History Infectious Disease History: Reports: Chicken Pox - Past Surgical History HEENT Surgical History: Reports: LASIK Male Surgical History: Reports: Prostatectomy Other Male Surgeries/Procedures: prostate "micro-wave and laser" Neurological Surgical History: Reports: C-Spine, Lumbar Spine, Sacral Spine, Spinal Fusion, Thoracic Spine Musculoskeletal Surgical History: Reports: Shoulder Surgery Social & Family History - Family History Family Medical History: No Pertinent Family History Cardiac: Reports: Heart Failure - Tobacco Use Tobacco Use Status *Q: Current Every Day Tobacco User Years of Tobacco use: 50 Packs/Tins Daily: 0.5 - Caffeine Use Caffeine Use: Reports: Coffee - Recreational Drug Use Recreational Drug Use: No ED ROS GENERAL - Review of Systems Review Of Systems: See Below Constitutional: Denies: Fever, Chills, Malaise HEENT: Reports: No Symptoms Respiratory: Denies: Shortness of Breath Cardiovascular: Reports: Chest Pain. Denies: Palpitations GI/Abdominal: Denies: Abdominal Pain, Nausea, Vomiting : Reports: No Symptoms Musculoskeletal: Reports: Other (Chronic pain issues, especially his back) Skin: Reports: No Symptoms Neurological: Denies: Headache Psychiatric: Reports: No Symptoms ED EXAM, GENERAL - Physical Exam Exam: See Below Exam Limited By: No Limitations General Appearance: Alert, No Apparent Distress Eye Exam: Bilateral Eye: Normal Inspection Head: Atraumatic Neck: Supple, Non-Tender Respiratory/Chest: Lungs Clear Cardiovascular: Regular Rate, Rhythm, No Rub. No: Extra Beats GI/Abdominal: Soft, Non-Tender Extremities: Normal Inspection. No: Pedal Edema Neurological: Alert, Oriented Psychiatric: Normal Affect, Normal Mood Skin Exam: Warm, Dry #1 Interpretation Rhythm: NSR Course - Vital Signs Last Recorded V/S: Last Vital Signs Temp 96 F L 03/03/20 02:16 Pulse 74 03/03/20 02:16 Resp 15 03/03/20 02:16 BP 114/71 03/03/20 02:16 Pulse Ox 95 03/03/20 02:16 - Orders/Labs/Meds Orders: Active Orders 24 hr Category Date Time Status Chest 1V Frontal [CR] Stat Exams 03/03/20 01:36 Taken EKG 12 Lead [EK] Routine Ther 03/02/20 22:12 Ordered Labs: Laboratory Tests 03/02/20 03/02/20 03/02/20 Range/Units 22:17 22:17 22:17 WBC 10.0 (4.5-11.0) K/uL RBC 4.76 (4.30-5.90) M/uL Hgb 14.9 (12.0-15.0) g/dL Hct 44.7 (40.0-54.0) % MCV 94 (80-98) fL MCH 31 (27-31) pg MCHC 33 (32-36) % Plt Count 250 (150-400) K/uL Neut % (Auto) 50 (36-66) % Lymph % (Auto) 39 (24-44) % [place] % (Auto) 7 H (2-6) % Eos % (Auto) 3 (2-4) % Baso % (Auto) 1 (0-1) % D-Dimer, Quantitative (0.0-500.0) ng/mL Sodium 142 (140-148) mmol/L Potassium 3.4 L (3.6-5.2) mmol/L Chloride 102 (100-108) mmol/L Carbon Dioxide 29 (21-32) mmol/L Anion Gap 14.4 H (5.0-14.0) mmol/L BUN 24 H (7-18) mg/dL Creatinine 1.6 H (0.8-1.3) mg/dL Est Cr Clr Drug Dosing 44.53 mL/min Estimated GFR (MDRD) 44 L (>60) Glucose 95 (74-106) mg/dL Calcium 8.8 (8.5-10.1) mg/dL Total Bilirubin 0.2 (0.2-1.0) mg/dL AST 19 (15-37) U/L ALT 27 (12-78) U/L Alkaline Phosphatase 85 (46-116) U/L Troponin I < 0.017 (0.000-0.056) ng/mL Total Protein 6.8 (6.4-8.2) g/dL Albumin 3.4 (3.4-5.0) g/dL Globulin 3.4 (2.3-3.5) g/dL Albumin/Globulin Ratio 1.0 L (1.2-2.2) Lipase (73-393) U/L SARS CoV-2 RNA Rapid ELPIDIO 03/03/20 03/03/20 03/03/20 Range/Units 00:52 01:36 01:36 WBC (4.5-11.0) K/uL RBC (4.30-5.90) M/uL Hgb (12.0-15.0) g/dL Hct (40.0-54.0) % MCV (80-98) fL MCH (27-31) pg MCHC (32-36) % Plt Count (150-400) K/uL Neut % (Auto) (36-66) % Lymph % (Auto) (24-44) % [place] % (Auto) (2-6) % Eos % (Auto) (2-4) % Baso % (Auto) (0-1) % D-Dimer, Quantitative 454.51 (0.0-500.0) ng/mL Sodium (140-148) mmol/L Potassium (3.6-5.2) mmol/L Chloride (100-108) mmol/L Carbon Dioxide (21-32) mmol/L Anion Gap (5.0-14.0) mmol/L BUN (7-18) mg/dL Creatinine (0.8-1.3) mg/dL Est Cr Clr Drug Dosing mL/min Estimated GFR (MDRD) (>60) Glucose (74-106) mg/dL Calcium (8.5-10.1) mg/dL Total Bilirubin (0.2-1.0) mg/dL AST (15-37) U/L ALT (12-78) U/L Alkaline Phosphatase (46-116) U/L Troponin I 0.124 H* (0.000-0.056) ng/mL Total Protein (6.4-8.2) g/dL Albumin (3.4-5.0) g/dL Globulin (2.3-3.5) g/dL Albumin/Globulin Ratio (1.2-2.2) Lipase 146 (73-393) U/L SARS CoV-2 RNA Rapid ELPIDIO 03/03/20 Range/Units 01:43 WBC (4.5-11.0) K/uL RBC (4.30-5.90) M/uL Hgb (12.0-15.0) g/dL Hct (40.0-54.0) % MCV (80-98) fL MCH (27-31) pg MCHC (32-36) % Plt Count (150-400) K/uL Neut % (Auto) (36-66) % Lymph % (Auto) (24-44) % [place] % (Auto) (2-6) % Eos % (Auto) (2-4) % Baso % (Auto) (0-1) % D-Dimer, Quantitative (0.0-500.0) ng/mL Sodium (140-148) mmol/L Potassium (3.6-5.2) mmol/L Chloride (100-108) mmol/L Carbon Dioxide (21-32) mmol/L Anion Gap (5.0-14.0) mmol/L BUN (7-18) mg/dL Creatinine (0.8-1.3) mg/dL Est Cr Clr Drug Dosing mL/min Estimated GFR (MDRD) (>60) Glucose (74-106) mg/dL Calcium (8.5-10.1) mg/dL Total Bilirubin (0.2-1.0) mg/dL AST (15-37) U/L ALT (12-78) U/L Alkaline Phosphatase (46-116) U/L Troponin I (0.000-0.056) ng/mL Total Protein (6.4-8.2) g/dL Albumin (3.4-5.0) g/dL Globulin (2.3-3.5) g/dL Albumin/Globulin Ratio (1.2-2.2) Lipase (73-393) U/L SARS CoV-2 RNA Rapid ELPIDIO Negative Meds: Medications Discontinued Medications Generic Name Dose Route Start Last Admin Trade Name Freq PRN Reason Stop Dose Admin Aspirin 324 mg 03/03/20 01:23 03/03/20 01:31 Aspirin PO 03/03/20 01:24 324 mg ONETIME ONE Administration Heparin Sodium (Porcine) 4,000 units 03/03/20 01:23 03/03/20 01:32 Heparin Sodium IVPUSH 03/03/20 01:24 4,000 units ONETIME ONE Administration Sodium Chloride 1,000 mls @ 500 mls/hr 03/02/20 22:15 03/02/20 22:31 Normal Saline IV 500 mls/hr ASDIRECTED DAVID Administration Heparin Sodium/Dextrose 25,000 units in 500 mls @ 16 mls/hr 03/03/20 01:30 03/03/20 02:28 Heparin 25,000 Units In D5w 500 Ml IV 800 units/hr TITRATE DAVID 16 mls/hr Administration Protocol 800 UNITS/HR Morphine Sulfate 4 mg 03/02/20 22:12 03/02/20 22:28 Morphine IVPUSH 03/02/20 22:13 4 mg ONETIME ONE Administration Ondansetron HCl 4 mg 03/02/20 22:23 03/02/20 22:28 Zofran IVPUSH 03/02/20 22:24 4 mg ONETIME ONE Administration Ondansetron HCl Confirm 03/02/20 22:25 03/02/20 22:28 Zofran Administered 03/02/20 22:26 Not Given Dose 4 mg .[address] [facility] ONE - Re-Assessments/Exams Free Text/Narrative Re-Assessment/Exam: 03/03/20 01:37 Aspirin initially held due to hx of gastritis and atypical symptoms. Patient was comfortable after the morphine. EKG on arrival was normal. cbc cmp, trop ordered. trop was 0. Patient continued to be comfortable but I asked him to stay 3 hours for a repeat troponin. This was elevated. Called [facility] and was asked to do a Covid, lipase, and ddimer as well as chest xray before transfer. 03/03/20 02:12 Chest x-ray is normal, Covid is negative, lipase and D-dimer also normal. Patient will be transferred to [facility] on a heparin drip for admission and cardiology evaluation likely tomorrow. Departure - Departure Time of Disposition: 02:38 Disposition: DC/Tfer to Other 70 Clinical Impression: Non-STEMI (non-ST elevated myocardial infarction) - Discharge Information Referrals: PCP,None [Primary Care Provider] - Forms: ED Department Discharge Care Plan Goals: Patient will be transferred to [facility] by EMS on a heparin drip, accepted by Dr. Boswell at 2:10 AM. Patient left in stable condition, asymptomatic. Sepsis Event Note (ED) - Evaluation Sepsis Screening Result: No Definite Risk - Focused Exam Vital Signs: Vital Signs Temp Pulse Resp BP Pulse Ox 03/03/20 02:16 96 F L 74 15 114/71 95 03/03/20 01:58 84 14 113/78 95 03/03/20 01:06 68 14 107/67 92 L 03/02/20 22:39 80 11 L 115/72 96 03/02/20 22:10 97.8 F 87 15 127/77 97 03/02/20 22:08 97.8 F 87 15 127/77 97 - My Orders Last 24 Hours: My Active Orders 03/02/20 22:12 EKG 12 Lead [EK] Routine 03/03/20 01:36 Chest 1V Frontal [CR] Stat - Assessment/Plan Last 24 Hours: My Active Orders 03/02/20 22:12 EKG 12 Lead [EK] Routine 03/03/20 01:36 Chest 1V Frontal [CR] Stat
[2020-03-03] MEDS ORDERED: Heparin Sodium 5,000 Units/ML Vial IVPUSH ONE (01:23)
[2020-03-03] MEDS ORDERED: Aspirin 81 MG Tab.Chew PO ONE (01:23)
[2020-03-03] MEDS ORDERED: Heparin Sodium/D5W 25,000 UNITS/500 ML BAG IV SCH (01:30)
[2020-03-03 02:16] VITALS: BP 114/71; PULSE 74
--- NOTE | 2020-03-05 09:18 | CR ---
CHEST: Portable 03/03/2020 at 1:50 AM CLINICAL HISTORY:Chest pain COMPARISON:07/22/2019 FINDINGS: Heart size and pulmonary vascularity are normal. There is mild prominence to the interstitial markings which is chronic. There is mild pleural parenchymal scarring in the perihilar regions. There is a granuloma in the left lung IMPRESSION: Chronic interstitial changes Previous granulomatous exposure No acute cardiopulmonary process.
== END 2020-03-03 02:58 | disposition other institution (70) ==
LOC: JP.ED 21:52
DX: I21.4 Non-ST elevation (NSTEMI) myocardial infarction (principal); Z20.828 Contact with and (suspected) exposure to other viral communicable diseases; K21.9 Gastro-esophageal reflux disease without esophagitis; N18.9 Chronic kidney disease, unspecified; F17.210 Nicotine dependence, cigarettes, uncomplicated; Z79.899 Other long term (current) drug therapy
CPT/HCPCS: 36415; 71045; 80053; 83690; 84484; 85025; 85379; 93005; 96365; 96375; 99285; A9270; J1644; J2270; J2405; J7030; U0002; 93010

== ENCOUNTER 2020-03-06 13:03 | Emergency (ER) | payer MEDICARE, OTHER ==
[2020-03-06] MEDS ORDERED: Aspirin 81 MG Tab.Chew ONE (13:16)
[2020-03-06] MEDS ORDERED: Aspirin 81 MG Tab.Chew PO ONE (13:19)
[2020-03-06] MEDS ORDERED: Morphine 4 MG/ML Syringe IVPUSH ONE (13:20)
--- NOTE | 2020-03-06 13:21 | EDM.PDOC ---
ED HPI GENERAL MEDICAL PROBLEM - General Chief Complaint: Chest Pain Stated Complaint: CHEST PAIN Time Seen by Provider: 03/06/20 13:05 Source of Information: Reports: Patient History Limitations: Reports: No Limitations - History of Present Illness INITIAL COMMENTS - FREE TEXT/NARRATIVE: 65-year-old male was sent up to [place] for an angiogram after a positive troponin 5 days ago and received 2 stents. He was doing well postoperatively, came to the hospital today to schedule cardiac rehab and developed chest pain. When he arrived he looked somewhat pale, was complaining of 3/10 chest pain so was brought up to the emergency room. It fairly rapidly worsened to 5 or 6/10, and he looked uncomfortable. He said it felt very similar to the pain he was having last week. No shortness of breath, no diaphoresis. Onset: Sudden (Pain started fairly suddenly 30 minutes ago) Location: Reports: Chest Chest Pain Score (Numeric/FACES): 6 - Related Data Allergies Allergy/AdvReac Type Severity Reaction Status Date / Time No Known Allergies Allergy Verified 03/03/20 01:04 Home Meds: Home Meds Hydrocodone/Acetaminophen [Hydrocodon-Acetaminophen 5-325] 1 each PO BID 01/11/19 [History] Pantoprazole [ProTONIX] 40 mg PO DAILY 07/22/19 [History] Baclofen 10 mg PO ASDIRECTED PRN 03/03/20 [History] Nitroglycerin [Nitrostat] 0.4 mg SL ASDIRECTED PRN 03/03/20 [History] Aspirin 81 mg PO DAILY 03/06/20 [History] Metoprolol Succinate [Toprol XL] 25 mg PO DAILY 03/06/20 [History] Ticagrelor [Brilinta] 90 mg PO DAILY 03/06/20 [History] lisinopriL [Lisinopril] 2.5 mg PO DAILY 03/06/20 [History] Past Medical History HEENT History: Reports: Impaired Vision, Other (See Below) Other HEENT History: impaired swallow, tinnitus Cardiovascular History: Reports: DE, Other (See Below) Other Cardiovascular History: "aorta problem". "aortic blockages" Respiratory History: Reports: Sleep Apnea Gastrointestinal History: Reports: GERD, Hiatal Hernia Genitourinary History: Reports: BPH, Chronic Renal Insuffiency, Prostate Disorder Musculoskeletal History: Reports: Arthritis, Back Pain, Chronic, Other (See Below) Other Musculoskeletal History: shoulder bursitis Neurological History: Reports: Concussion Psychiatric History: Reports: Depression Hematologic History: Reports: Anticoagulation Therapy Oncologic (Cancer) History: Reports: Prostate Dermatologic History: Reports: Urticaria, Other (See Below) Other Dermatologic History: c4-t1. l4-s1 - Infectious Disease History Infectious Disease History: Reports: Chicken Pox - Past Surgical History HEENT Surgical History: Reports: LASIK Cardiovascular Surgical History: Reports: Carotid Stents Male Surgical History: Reports: Prostatectomy Other Male Surgeries/Procedures: prostate "micro-wave and laser" Neurological Surgical History: Reports: C-Spine, Lumbar Spine, Sacral Spine, Spinal Fusion, Thoracic Spine Musculoskeletal Surgical History: Reports: Shoulder Surgery Social & Family History - Family History Family Medical History: No Pertinent Family History Cardiac: Reports: Heart Failure - Caffeine Use Caffeine Use: Reports: Coffee - Recreational Drug Use Recreational Drug Use: No ED ROS GENERAL - Review of Systems Review Of Systems: See Below Constitutional: Denies: Fever, Chills Respiratory: Denies: Shortness of Breath Cardiovascular: Reports: Chest Pain GI/Abdominal: Reports: No Symptoms : Reports: No Symptoms Musculoskeletal: Reports: No Symptoms Skin: Denies: Diaphoresis Neurological: Reports: No Symptoms ED EXAM, GENERAL - Physical Exam Exam: See Below Exam Limited By: No Limitations General Appearance: Alert, No Apparent Distress (Patient initially looked uncomfortable but not distressed), Anxious Eye Exam: Bilateral Eye: Normal Inspection Head: Atraumatic Neck: Non-Tender Respiratory/Chest: No Respiratory Distress, Lungs Clear Cardiovascular: Regular Rate, Rhythm GI/Abdominal: Non-Tender Extremities: Normal Inspection. No: Pedal Edema Neurological: Alert, Oriented Psychiatric: Anxious #1 Interpretation EKG Date: 03/06/20 Rhythm: NSR ST-T: Normal (Nonspecific T wave changes, new from last week) Course - Vital Signs Last Recorded V/S: Last Vital Signs Temp 96.8 F L 03/06/20 13:10 Pulse 54 L 03/06/20 15:01 Resp 18 03/06/20 15:01 BP 94/62 03/06/20 15:01 Pulse Ox 97 03/06/20 14:25 - Orders/Labs/Meds Labs: Laboratory Tests 03/06/20 Range/Units 13:39 Troponin I 1.506 H* (0.000-0.056) ng/mL Meds: Medications Discontinued Medications Generic Name Dose Route Start Last Admin Trade Name Bita PRN Reason Stop Dose Admin Aspirin 324 mg 03/06/20 13:19 03/06/20 13:27 Aspirin PO 03/06/20 13:20 324 mg ONETIME ONE Administration Aspirin Confirm 03/06/20 13:16 03/06/20 13:24 Aspirin Administered 03/06/20 13:17 Not Given Dose 324 mg .ROUTE .STK-MED ONE Enoxaparin Sodium 100 mg 03/06/20 14:07 03/06/20 15:13 Lovenox SUBCUT 03/06/20 14:08 Not Given ONETIME ONE Heparin Sodium (Porcine) Confirm 03/06/20 13:39 03/06/20 13:44 Heparin Sodium Administered 03/06/20 13:40 Not Given Dose 5,000 units .ROUTE .STK-MED ONE Heparin Sodium (Porcine) 4,000 units 03/06/20 13:42 03/06/20 13:43 Heparin Sodium IVPUSH 03/06/20 13:43 4,000 units .BOLUS ONE Administration Heparin Sodium/Dextrose 25,000 units in 500 mls @ 1,360.78 mls/hr 03/06/20 13:45 Heparin 25,000 Units In D5w 500 Ml IV TITRATE DAVID Protocol 1,000 UNITS/KG/HR Heparin Sodium/Dextrose 25,000 units in 500 mls @ 16 mls/hr 03/06/20 13:45 03/06/20 13:55 Heparin 25,000 Units In D5w 500 Ml IV 800 units/hr TITRATE DAVID 16 mls/hr Administration 800 UNITS/HR Morphine Sulfate 4 mg 03/06/20 13:20 03/06/20 13:26 Morphine IVPUSH 03/06/20 13:21 4 mg ONETIME ONE Administration Nitroglycerin 0.4 mg 03/06/20 13:31 Nitrostat SL 03/06/20 13:32 ONETIME ONE - Re-Assessments/Exams Free Text/Narrative Re-Assessment/Exam: 03/06/20 14:06 Patient was given 4 chewable aspirin, 4 mg of IV morphine for pain, and an EKG was done which showed subtle T wave changes but nothing as far as ST elevation or depression. Discussed the case with cardiology in [place] and they asked for him to be heparinized and sent back up for evaluation. 03/06/20 14:09 Pain markedly improved after the morphine and aspirin. Troponin was 1.5. Departure - Departure Time of Disposition: 15:43 Disposition: DC/Tfer to Other Reason for Transfer *Q: Other Clinical Impression: Unstable angina Referrals: PCP,None [Primary Care Provider] - Forms: ED Department Discharge Care Plan Goals: Patient will be transferred to [place] for reevaluation by cardiology after developing unstable angina despite recent catheterization and stent placement within the last week. Sepsis Event Note (ED) - Evaluation Sepsis Screening Result: No Definite Risk - Focused Exam Vital Signs: Vital Signs Temp Pulse Resp BP Pulse Ox 03/06/20 15:01 54 L 18 94/62 03/06/20 14:25 53 L 17 98/62 97 03/06/20 14:10 56 L 16 99/65 98 03/06/20 13:55 61 15 116/77 98 03/06/20 13:43 67 16 105/75 98 03/06/20 13:10 96.8 F L 62 16 123/83 98
[2020-03-06] MEDS ORDERED: Nitroglycerin 0.4 MG Tab.SL SL ONE (13:31)
[2020-03-06] MEDS ORDERED: Heparin Sodium 5,000 Units/ML Vial ONE (13:39)
[2020-03-06] MEDS ORDERED: Heparin Sodium 5,000 Units/ML Vial IVPUSH ONE (13:42)
[2020-03-06] MEDS ORDERED: Heparin Sodium/D5W 25,000 UNITS/500 ML BAG IV SCH ×2 (13:45)
[2020-03-06] MEDS ORDERED: Nicotine 21 MG/24 Hr Patch TRDERM ONE (14:07)
[2020-03-06] MEDS ORDERED: Enoxaparin 100 MG/1 ML Syringe SUBCUT ONE (14:07)
[2020-03-06 15:01] VITALS: BP 94/62; PULSE 54
== END 2020-03-06 15:43 | disposition other institution (70) ==
LOC: JP.ED 13:03
DX: I20.0 Unstable angina (principal); I25.2 Old myocardial infarction; K21.9 Gastro-esophageal reflux disease without esophagitis; N18.9 Chronic kidney disease, unspecified; M19.90 Unspecified osteoarthritis, unspecified site; Z79.82 Long term (current) use of aspirin; Z79.899 Other long term (current) drug therapy
CPT/HCPCS: 36415; 84484; 96365; 96375; 99285; A9270; J1644; J2270; 93010